=== PATIENT | male | born 1985 | race Caucasian/White ===

== ENCOUNTER 2024-05-22 12:55 | Emergency (ER) | payer BC ==
[2024-05-22] MEDS ORDERED: Ketorolac Tromethamine 30 MG (1 mL) VIAL ONE (13:54)
[2024-05-22] MEDS ORDERED: Acetaminophen 325 MG TAB ONE (13:54)
[2024-05-22] MEDS ORDERED: Lidocaine 4% Patch ONE (13:55)
== END 2024-05-22 14:08 | disposition home or self-care (01) ==
LOC: CSHERS 12:55
DX: M54.42 Lumbago with sciatica, left side (principal); F17.210 Nicotine dependence, cigarettes, uncomplicated
CPT/HCPCS: 96372; 99283; J1885